=== PATIENT | male | born 1960 | race African-American/Black ===

== ENCOUNTER 2019-01-30 21:17 | Inpatient (IN) | payer OTHER ==
[~2019-01-30] VITALS: Ht 167.6 cm; Wt 68.0 kg
[~2019-01-30 21:17] MED LIST: CATAFLAM50 MG PO; GLUCOPHAGE XR500 MG PO; GLUCOTROL10 MG PO; TYLENOL W-CODEI1 TAB PO; VASOFLEX FORTE1 CAP PO; ZANTAC300 MG PO
[2019-02-01] MEDS ORDERED: JANUMET 50-1,01 EACH PO (08:38)
[2019-02-01] MEDS ORDERED: GLUCOTROL10 MG PO (08:38)
[2019-02-01] MEDS ORDERED: SIMVASTATIN20 MG PO (08:38)
[2019-02-01] MEDS ORDERED: LOSARTAN POTASS50 MG PO (08:38)
[2019-02-01] MEDS ORDERED: CLOPIDOGREL BIS75 MG PO (08:38)
== END 2019-02-01 13:45 | disposition home or self-care (01) | DRG 65 ==
LOC: ER 21:17 → SEC-K 01-31 08:59 → MEDJ 01-31 08:59 → MEDI 01-31 11:46 → MEDJ 01-31 11:46
PROVIDERS: ADMIT Internal Medicine
PROC: 4A12X4Z Monitoring of Cardiac Electrical Activity, External Approach (ICD-10-PCS; principal; 2019-01-31)
PROC: B246ZZZ Ultrasonography of Right and Left Heart (ICD-10-PCS; 2019-01-31)
PROC: B345ZZZ Ultrasonography of Bilateral Common Carotid Arteries (ICD-10-PCS; 2019-01-31)
PROC: B346ZZZ Ultrasonography of Right Internal Carotid Artery (ICD-10-PCS; 2019-01-31)
PROC: B030ZZZ Magnetic Resonance Imaging (MRI) of Brain (ICD-10-PCS; 2019-01-31)
DX: I63.89 Other cerebral infarction (principal); I69.351 Hemiplegia and hemiparesis following cerebral infarction affecting right dominant side; I10 Essential (primary) hypertension; I67.82 Cerebral ischemia; I69.322 Dysarthria following cerebral infarction; E11.9 Type 2 diabetes mellitus without complications; Z91.19 Patient's noncompliance with other medical treatment and regimen
CPT/HCPCS: 70544